=== PATIENT | male | born 1990 | race Caucasian/White ===

== ENCOUNTER 2019-04-17 22:08 | Emergency (ER) | payer SELFPAY ==
[~2019-04-17] VITALS: Ht 172.7 cm; Wt 65.8 kg
--- NOTE | 2019-04-17 22:45 | NUR ---
Dr. Alvarado at bedside for MSE
[2019-04-17 23:13] LABS: BASOPHILS # (AUTO) 0.1 K/uL (0.0-8.0); BASOPHILS % (AUTO) 0.5 % (0.0-2.0); EOSINOPHILS % (AUTO) 0.1 % (0.0-7.0); HEMOGLOBIN 12.7 g/dL (12.5-16.3); LYMPHOCYTES % (AUTO) 15.5 % (20.5-51.5); MEAN CORPUSCULAR HEMOGLOBIN 29.6 uug (23.8-33.4); MEAN CORPUSCULAR HGB CONC 34 g/dL (32.5-36.3); MEAN CORPUSCULAR VOLUME 86.3 fL (73.0-96.2); MONOCYTES # (AUTO) 0.9 K/uL (2.0-10.0); NEUTROPHILS # (AUTO) 9.8 K/uL (1.8-8.9); NEUTROPHILS % (AUTO) 76.9 % (38.5-71.5); PLATELET COUNT (AUTO) 331 K/uL (152-348); RED BLOOD CELL COUNT(AUTO) 4.28 MIL/uL (4.06-5.63); WHITE BLOOD COUNT (AUTO) 12.8 K/uL (3.6-10.2)
[2019-04-17 23:29] LABS: ALANINE AMINOTRANSFERASE 20 U/L (16-63); ALKALINE PHOSPHATASE 77 U/L (50-136); ASPARTATE AMINOTRANSFERASE 25 U/L (15-37); BILIRUBIN,DIRECT 0.1 mg/dL (0.0-0.2); BILIRUBIN,TOTAL 0.4 mg/dL (0.2-1.0); CARBON DIOXIDE 31 mmol/L (21-32); CHLORIDE 100 mmol/L (98-107); CREATININE 1.2 mg/dL (0.6-1.3); GLUCOSE 103 mg/dL (74-106); POTASSIUM 4.2 mmol/L (3.5-5.1); TOTAL PROTEIN, SERUM 7.5 g/dL (6.4-8.2); UREA NITROGEN, BLOOD 40 mg/dL (7-18)
[2019-04-17 23:52] LABS: ACETAMINOPHEN < 2.0 ug/mL (10-30); ETHANOL < 3 MG/DL (0-0)
--- NOTE | 2019-04-18 00:30 | NUR ---
Patient in bed sleeping but easily arousable. Breathing even and unlabored. NAD noted.
--- NOTE | 2019-04-18 02:15 | NUR ---
Provided patient with juice, water, and sandwich. able to tolerate food. Breathing even and unlabored. NAD noted.
[2019-04-18] MEDS ORDERED: OLANZAPINE 5 MG TABLET ONE (02:59)
[2019-04-18] MEDS ORDERED: OLANZAPINE 5 MG TABLET PO ONE (03:00)
[2019-04-18 03:15] LABS: *BILIRUBIN,URIN NEGATIVE (NEGATIVE); *COLOR,URINE YELLOW (YELLOW); *KETONES,URINE NEGATIVE (NEGATIVE); *UROBILINOGEN,URINE 0.2 E.U./dl (NORMAL); LEUKOCYTE ESTERASE ,URINE NEGATIVE (NEGATIVE); NITRITE, URINE NEGATIVE (NEGATIVE); PH,URINE 5.5 (5.0-8.0); UGLUCOSE NEGATIVE (NEGATIVE)
[2019-04-18 03:17] LABS: *BLOOD, URINE TRACE (NEGATIVE); *CLARITY,URINE HAZY (CLEAR)
[2019-04-18 03:25] LABS: BACTERIA,URINE NONE SEEN /HPF (NONE SEEN); SQUAMOUS EPITHELIAL CELL,UR FEW /HPF (NONE SEEN); WBC,URINE 0-3 /HPF (0-3)
--- NOTE | 2019-04-18 03:37 | NUR ---
Patient in bed sleeping but easily arousable. Breathing even and unlabored. NAD noted
[2019-04-18 03:38] LABS: *AMPHETAMINE, URINE POSITIVE (NEGATIVE); *BARBITURATE, URINE NEGATIVE (NEGATIVE); *CANNABINOID, URINE NEGATIVE (NEGATIVE); *COCCAINE, URINE NEGATIVE (NEGATIVE); *OPIATE, URINE NEGATIVE (NEGATIVE); *PHENCYCLIDINE SCREEN,URINE NEGATIVE (NEGATIVE)
--- NOTE | 2019-04-18 05:32 | NUR ---
Patient ambulated to bathroom with steady gait. Denies any pain or discomfort
--- NOTE | 2019-04-18 07:00 | NUR ---
recievwed pt in bed, resting, arousable. pt refused break fast.
--- NOTE | 2019-04-18 09:30 | NUR ---
offered pt sandwiches. pt eating with good apetite.
--- NOTE | 2019-04-18 10:26 | NUR ---
[facility] at bedside. pt reluctant to speak with frederic at this time
--- NOTE | 2019-04-18 10:40 | NUR ---
10:20am: SW arrived to the ED to meet with this patient, per social worker masters consult that this SW received from KARIE Gan. Patient is in his assigned ED room, asleep. Patient awoke after his name was called a couple of times. Patient presents sleepy, and his speech is low and someone mumbling. Limited information gathered from the patient. Patient is a 29 year old homeless male. Discharge plans and homeless resources discussed with the patient, and patient expressed wanting to return back to his previous living arrangements, declining shelters. Patient's insurance status is unclear, and SW asked the patient if he had any identifying information with him. Patient stated not having any ID or insurance card, but stated he has [employer] insurance. Patient's name and provided to ED budget record clerkramiro Bolanos, who will work on identifying patient's insurances tatus. Patient is unable to recall his social security number. SW prepared the homeless resource packet for the patient. Patient provided with a long sleeve shirt, although he was dressed appropriately in pants and a thick zip-up jacket with a hoodie. Upon discharge, patient's RN Malik to provide all resources and discharge instructions.
--- NOTE | 2019-04-18 12:50 | NUR ---
hospital lunch tray provided ofr pt.
--- NOTE | 2019-04-18 14:49 | NUR ---
Patient given written and verbal discharge instructions. Patient verbalizes understanding of instructions. Patient is ambulatory with steady gait. Patient given list of available shelters in surrounding area.pt [id number], walks in steady gait. no sign of idstress.pt appreciative of the care recieved here.
[2019-04-18 14:51] VITALS: BP 117/66
== END 2019-04-18 14:58 | disposition home or self-care (01) ==
LOC: ER 22:10 → EDBD 22:10 → ER 04-18 14:58
DX: F15.10 Other stimulant abuse, uncomplicated (principal); Z59.0 Homelessness
CPT/HCPCS: 36415; 80048; 80076; 80307; 81000; 81001; 85025; 99283; G0480 ×2; G0481